=== PATIENT | female | born 1995 | race Caucasian/White ===

== ENCOUNTER 2020-02-02 12:14 | Outpatient (CLI) | payer MEDICAID, SELFPAY ==
--- NOTE | 2020-02-02 12:17 | US_ITS ---
WS: [id number] TRANSABDOMINAL FIRST TRIMESTER ULTRASOUND HISTORY: SUPERVISION NORMAL : 3 PARA: 1 COMPARISON: None available. FINDINGS: Cervical length is 2.9 cm; closed. Single live intrauterine . [place] rump length measuring 0.9 cm. Yolk sac measures 0.4 cm. Gestational sac measures 7w0d cm. cardiac tones 136 BPM. Estimated date of delivery 09/20/2020. Uterus measures 5.1 cm x 8.7 x cm 5.8 cm. Right ovary measures 2.4 cm x 2.1 cm x 1.0 cm. Left ovary measures 3.0 cm x 2.4 cm x 1.2 cm. US/US OB <= 14 weeks fetus [id number] IMPRESSION: Interuterine at 7 weeks gestation with a due date using this criteria September 20, 2020.
== END 2020-02-02 12:15 | disposition home or self-care (01) ==
PROVIDERS: Visit Provider Family Medicine
DX: Z34.91 Encounter for supervision of normal pregnancy, unspecified, first trimester (principal); Z3A.01 Less than 8 weeks gestation of pregnancy
CPT/HCPCS: 76801

== ENCOUNTER 2020-04-29 10:02 | Outpatient (CLI) | payer MEDICAID, SELFPAY ==
--- NOTE | 2020-04-29 10:12 | US_ITS ---
WS: [id number] OB ultrasound, 04/29/2020 Clinical Data: ANATOMY/NORMAL , SUPERVISION Comparison: OB ultrasound, 02/02/2020. Findings: There is a single intrauterine in the vertex presentation. The placenta is Anterior and gra de 0. There is a normal amount of amnionic fluid. The heart rate is 141 beats per minute. Measurements of growth and development: BPD: 4.5 cm HC: 17.1 cm AC: 14.3 cm FL: 3.1 cm The estimated weight is 307 or approximately 11 ounces The estimated gestational age is 19w5d w ith an GENEVIEVE of approximately 09/18/2020. The cervix measures 3.84 cm and is closed. The placenta is po sterior and grade 0. anatomy show a normal stomach, kidneys, bladder, extremities, upper lip, cord insertion, three- vessel cord, entire spine, four-chamber heart, LVOT, RVOT, lateral cerebral ventricles, cerebellum an d cisterna magna. US/US OB >= 14 weeks fetus [id number] Impression: 1. Single intrauterine in vertex presentation. 2. Estimated gestational age 19w5d with an GENEVIEVE of 09/18/2020. 3. heart rate 141 beats per minute.
== END 2020-04-29 10:03 | disposition home or self-care (01) ==
LOC: RAD 10:05
PROVIDERS: PCP Family Medicine; Visit Provider Family Medicine
DX: Z36.89 Encounter for other specified antenatal screening (principal); Z3A.19 19 weeks gestation of pregnancy
CPT/HCPCS: 76805

== ENCOUNTER 2020-08-10 07:53 | Outpatient (CLI) | payer MEDICAID, SELFPAY ==
--- NOTE | 2020-08-10 08:10 | US_ITS ---
WS: [id number] LIMITED OBSTETRICAL ULTRASOUND HISTORY: SMALL FOR GESTATIONAL AGE/SUPERVISION NORMAL COMPARISON: 04/29/2020, 02/02/2020 Presentation: Cephalic. Cervix: Closed and normal length. Placenta: Posterior, no previa or abruption. Grade: 1. HEART: FHR of 133 BPM. measurements: BPD = 8.6 cm = 34w5d HC = 31.1 cm = 34w6d AC = 30.4 cm = 34w3d FL = 6.5 cm = 33w3d JAELYN: 12.3 cm EFW: 2370 g; 55 %. AGA by ultrasound: 34w3d GENEVIEVE by ultrasound: 09/18/2020 Compared to the first trimester there has been appropriate interval growth. First trimester EDC of 09/20/2020. Growth parameters and percentiles are still within normal limits[place] US/[place] [id number] IMPRESSION: 1. Single intrauterine gestation of 34 weeks 3 days with an EDC of 09/18/2020. 2. By ultrasound normal growth pattern.
== END 2020-08-10 07:54 | disposition home or self-care (01) ==
PROVIDERS: PCP Family Medicine; Visit Provider Family Medicine
DX: Z36.4 Encounter for antenatal screening for fetal growth retardation (principal); Z3A.34 34 weeks gestation of pregnancy
CPT/HCPCS: 76816

== ENCOUNTER 2020-08-23 11:00 | Outpatient (CLI) | payer MEDICAID, SELFPAY ==
--- NOTE | 2020-08-23 11:00 | ANES.PREANE2 ---
Pre-Anesthetic Assessment Pre-Anesthetic Assessment: Preop Diagnosis: IUP Proposed Procedure: Repeat Familial anesthetic complications: None Social: Social History: No alcohol and No tobacco Exam: Pre-Anes Outpt Exam: alert, oriented x 3, clear to auscultation bilaterally and regular rate & rhythm Airway: Cervical ROM: WNL MP: 2 Dentition: Full Pulmonary: Pulmonary: Asthma GI: GI: GERD Anesthetic Plan: ASA status: 2 Anesthesia: Regional (specify below) (SAB) Risk of > 500 ml blood loss (7ml/kg in children): No Data Anesthesia Cardiac Studies: No Data to Display
== END 2020-08-23 11:01 ==
LOC: OPS 05-12 10:42
PROVIDERS: PCP Family Medicine; Visit Provider Family Medicine
DX: Z01.818 Encounter for other preprocedural examination (principal)

== ENCOUNTER 2020-09-14 10:45 | Inpatient (IN) | payer MEDICAID, SELFPAY ==
[2020-09-14] VITALS (30 sets, daily range): BP systolic 96–151; BP diastolic 56–88; PULSE 45–91; RESP 15–18; TEMP 36.3–36.7; O2SAT 97–100; BMI 28.0
[2020-09-14 12:00] LABS: Basophils % 0.4 %; Eosinophils % 0.3 %; Hematocrit 40.7 % (37.0-47.0); Hemoglobin 12.9 g/dL (11.5-15.3); Lymphocytes # 1.1 10^3/uL (0.8-4.8); Lymphocytes % 16.3 %; Mean Corpuscular HGB Conc 31.7 g/dL (30.0-36.0); Mean Corpuscular Hemoglobin 29.5 pg (28.0-34.0); Mean Corpuscular Volume 92.9 fL (81-99); Mean Platelet Volume 13.1 fL (7.4-10.4); Monocytes # 0.6 10^3/uL (0.2-0.9); Neutrophils # 5.17 10^3/uL (1.8-7.7); Neutrophils % 73.9 %; Nucleated Red Blood Cells % 0 %; Platelet Count 180 10^3/cmm (130-400); Red Blood Count 4.38 10^6/uL (4.1-5.3)
[2020-09-14] MEDS: lactated ringers 1,000 ML 500 ML IV (12:05)
[2020-09-14] MEDS: famotidine 20 mg/2 mL INJ IVP (13:13)
[2020-09-14] MEDS: metoclopramide 5 mg/mL SDV 2 mL 10 MG IVP (13:13)
[2020-09-14] MEDS: citric acid-sodium citrate 30 mL UDC PO (13:13)
--- NOTE | 2020-09-14 13:23 | PM.HP ---
Providers/Chief Complaint Admitting Physician: Francisco Martinez MD Primary Care Provider: Francisco Martinez MD Chief Complaint: section History of Present Illness Markus Valentino is a 24 year old at 39.3 weeks gestation by LMP consistent with 7-week ultrasound. Her is complicated by history of chlamydia, history of LTCS requesting repeat LTCS, history of THC use, asthma, mild anemia. The patient presents to labor delivery for a scheduled repeat low-transverse section. She feels well. She denies any fevers, chest pain, cough, constipation, diarrhea, leakage of fluid, vaginal bleeding, dysuria. Overall she feels well. Medications/Allergies Home Medications Medication Instructions Recorded Confirmed Last Taken Type iron 325 mg PO BID 09/14/20 09/14/20 Unknown History Allergies Allergy/AdvReac Type Severity Reaction Status Date / Time No Known Allergies Allergy Verified 09/14/20 11:56 PFSH Acute PFSH: Medical History (Updated 09/14/20 @ 13:27 by Francisco Martinez MD) Asthma Surgical History History of low transverse section Female Reproductive History: : 4 Vitals/I&O/Wt Last Vital Signs Temp 98.1 F 09/14/20 12:04 Pulse 70 09/14/20 13:03 BP 120/72 09/14/20 13:03 Weight last 48 hrs Weight 153 lb Physical Exam Narrative: EXAM NARRATIVE: General: Alert and oriented x3 Eyes: Pupils equal round and reactive to light and accommodation Mouth: Mucous membranes moist, pharynx non-erythematous Cardiac: Regular rate and rhythm without murmurs Lungs: Clear to auscultation bilaterally without wheezes, crackles or rhonchi Abdomen: Soft, non-tender, fundus consistent with gestational age Extremities: Trace edema in the bilateral lower extremities Data : 09/14/20 11:20 A&P Additional A&P Information The patient is doing well at this time. I discussed the routine section plan of care. All questions were answered. We will plan for a repeat low-transverse section. The patient does not wish to have a tubal ligation. We will get a urine drug screen due to her prior THC use. Attestations Medical Necessity Statement*: The patient will be here for greater than 2 midnights due to routine intrapartum and management of section. Coding Level of Care Code Acute Manager Mental Health for Emily Choi
--- NOTE | 2020-09-14 13:29 | P.ANESUD_ITS ---
Pre-Anesthetic Update Pre-Anesthetic Assessment: Date of Surgery/Procedure: 09/14/20 Preop Anne gnosis: IUP Proposed Procedure: Operation Date: 09/14/20 13:30 Proposed Procedures p Section(Not Applicable) - Francisco Martinez MD Any changes to Pre-Anesthetic Assessment?: No Last Intake: 0000 Last Intake: 00:00 Labs Last 48hrs: Laboratory Results - last 48 hr 09/14/20 09/14/20 11:20 11:20 WBC 7.0 RBC 4.38 Hgb 12.9 Hct 40.7 MCV 92.9 MCH 29.5 MCHC 31.7 RDW 15.0 Plt Count 180 MPV 13.1 H Neut % (Auto) 73.9 Lymph % (Auto) 16.3 [place] % (Auto) 9.0 Eos % (Auto) 0.3 Baso % (Auto) 0.4 Neut # (Auto) 5.17 Lymph # (Auto) 1.1 [place] # (Auto) 0.6 Eos # (Auto) 0.0 Baso # (Auto) 0.0 Nucleated RBC % (a uto) 0 Nucleated RBCs # 0.0 Blood Type O Positive Rho(D) Type Positive Vitals: Temperature 98.1 F 09/14/20 12:04 Pulse Rate 70 09/14/20 13:03 Pulse Rhythm 09/14/20 11:00 Respiratory Effort Non-Labored 09/14/20 11:00 Respiratory Depth Normal 09/14/20 11:00 Respiratory Patter n 09/14/20 11:00 Blood Pressure 120/72 09/14/20 13:03 Oxygen Delivery Me thod 09/14/20 11:00 Exam: Pre-Anes Outpt Exam: alert, oriented x 3, clear to auscultation bilaterally and regular rate & rhythm Cardiac Studies: No Data to Display
--- NOTE | 2020-09-14 15:07 | P.OP_ITS ---
Operative Report Date of procedure: September 14, 2020 Pre-op Diagnosis: IUP Pre-op Diagnosis: 1. Intrauterine at 39.3 weeks gestation 2. History of low transverse section requesting repeat low-transverse section 3. History of THC use 4. Asthma 5. Mild anemia Post-op Diagnosis: 1. Intrauterine status post repeat low transverse section at 39.3 weeks gestation 2. History of low transverse section requesting repeat low-transverse section 3. History of THC use 4. Asthma 5. Mild anemia 6. Delivery of healthy infant male weighing 6 pounds 9 ounces with Apgars of 8 and 9 Procedure Done: Repeat low-transverse section Specimens removed/disposition: Placenta discarded Surgeon: Francisco Martinez Anesthesia: Other (Spinal) Estimated blood loss (mL): 600 Complications: None Findings: 1. Delivery of healthy male weighing 6 pounds 9 ounces with Apgars of 8 and 9 Condition: stable Disposition: floor Brief History: Markus Valentino is a 24 year old G2 now P2 status post repeat low transverse section at 39.3 weeks gestation by LMP consistent with 7-week ultrasound. Her was complicated by history of chlamydia, history of LTCS requesting repeat LTCS, history of THC use, asthma, mild anemia. The patient presented for a scheduled repeat low-transverse section. She did not have any complications or concerns prior to delivery. Procedure: After informed consent was obtained, the patient was taken to the operating room and the patient was prepped and draped in a normal sterile fashion in the dorsal supine position. A spinal epidural was placed and adequate anesthesia was confirmed. At 1353 on 09/14/2020, a Pfannenstiel skin incision was made and carried through to the underlying layer of fascia using a scalpel. The fascial incision was then extended laterally using curved Mayos. The fascia was then grasped with Indira clamps and the underlying rectus muscles were dissected off taking care to avoid injury to the underlying tissues. The peritoneum was entered bluntly with one digit. It was then bluntly. The bladder blade was placed and the vesicouterine peritoneum was well below the lower uterine segment of the uterus. The uterine incision was made in the lower uterine segment in a transverse fashion with the scalpel at 1357. The amniotic membrane was entered bluntly and a large amount of clear fluid was noted. The infant's head delivered atraumatically without difficulty at 1358. There was no nuchal cord. The mouth and nose were suctioned. The rest of the delivered without difficulty. The infant was crying immediately upon delivery. The cord was clamped and cut and the infant was handed to the awaiting pediatric nurses. The placenta was then manually expressed. The uterus was then exteriorized from the abdomen and a wet lap was used to clear the uterus of clots and debris. The bladder blade was reinserted and the uterine incision was closed using 0 chromic in a running locking fashion. A second layer of the same suture was used in the same manner. Excellent hemostasis was obtained. Next the posterior cul-de-sac was inspected and was cleared of any blood. The uterus was then placed back into the abdomen. The gutters were cleared of any further clots and debris and the uterine incision was again inspected and hemos tasis was noted. The subfascial tissue was inspected for hemostasis and the peritoneum was re-approximated using 2-0 plain in a running fashion. The fascia was then re-approximated using 0 Vicryl in a running fashion. The subcutaneous tissue was inspected for hemostasis. Clarence's fascia was then re-approximated using 3-0 plain in a running fashion. Good hemostasis was noted. The subcutaneous tissue was then re-approximated using a subcuticular stitch. The patient tolerated the procedure well and was recovered in stable condition. Estimated blood loss was 600 mL. Urine in the Alejandro catheter was clear. The patient was taken to recovery in good condition.
[2020-09-14] MEDS: dextrose 5%-lactated ringers 1,000 ML 125 ML IV ×2 (15:57→21:14)
[2020-09-14 16:00] LABS: Amphetamines Screen Urine Negative (Negative); Barbiturates Screen Urine Negative (Negative); Benzodiazepines Screen Urine Negative (Negative); Cocaine Screen Urine Negative (Negative); Opiate Screen Urine Negative (Negative); PCP Screen Urine Negative (Negative); THC Screen Urine Negative (Negative)
--- NOTE | 2020-09-14 16:19 | PC.NURSE ---
pt to room 10 from OR via bed. oriented to room/call light. instructed not to get out of bed without assistance, nothing to eat or drink unless provided by nursing. deep breathing/coughing discussed.
[2020-09-14] MEDS: ondansetron 2 mg/ML SDV 2 mL 4 MG IVP (17:02)
[2020-09-14] MEDS: promethazine 25 mg/mL SDV 1 mL IM (17:42)
[2020-09-14] MEDS: diphenhydrAMINE 50 mg/mL SDV 1mL 25 MG IVP (17:43)
--- NOTE | 2020-09-14 17:57 | PC.NURSE ---
pt still c/o severe nausea. now states she is getting a headache. meds given as ordered. cool washcloth to forehead. murphy care performed/chux changed
--- NOTE | 2020-09-14 18:34 | PC.NURSE ---
pt states nausea and REYNOLDS much better
[2020-09-14] MEDS: ketorolac 30 mg/mL INJ IVP (21:15)
[2020-09-15 01:30] VITALS: BP 119/81; PULSE 66
[2020-09-15] MEDS: ketorolac 30 mg/mL INJ IVP (03:21)
[2020-09-15 04:09] LABS: Hematocrit 36.6 % (37.0-47.0); Hemoglobin 11.3 g/dL (11.5-15.3); Mean Corpuscular HGB Conc 30.9 g/dL (30.0-36.0); Mean Corpuscular Hemoglobin 29.4 pg (28.0-34.0); Mean Corpuscular Volume 95.3 fL (81-99); Mean Platelet Volume 11.6 fL (7.4-10.4); Platelet Count 133 10^3/cmm (130-400); Red Blood Count 3.84 10^6/uL (4.1-5.3); Red Cell Distribution Width 14.8 % (12.1-15.1); White Blood Count 9.6 10^3/uL (4.0-10.0)
--- NOTE | 2020-09-15 08:41 | PM.PN ---
Subjective Subjective: Interval history: The patient is doing well at this time. She had some nausea yesterday that improved with IM Phenergan. Her pain is currently well controlled. The patient is ambulating, voiding, passing gas and tolerating food by mouth. She states that her bleeding is improving. She has no concerns at this time. Vitals/I&O/Wt Last Vital Signs Temp 97.9 F 09/14/20 18:30 Pulse 66 09/15/20 01:30 Resp 16 09/14/20 23:30 BP 119/81 09/15/20 01:30 Pulse Ox 97 09/14/20 23:30 09/14/20 09/15/20 09/15/20 22:59 06:59 14:59 Intake Total 2500.00 / 3550.00 Output Total 1440 / 1440 1650 / 3090 325 / 325 Balance 1060.00 / 2110.00 -1650 / 460.00 -325 / -325 Weight last 48 hrs Weight 153 lb Physical Exam Narrative: EXAM NARRATIVE: General: Alert and oriented x3 Mouth: Mucous membranes moist, pharynx non-erythematous Cardiac: Regular rate and rhythm without murmurs Lungs: Clear to auscultation bilaterally without wheezes, crackles or rhonchi Abdomen: Soft, mild tenderness over the uterus. Uterus is firm and 3 cm below the umbilicus. Extremities: Trace edema in the bilateral lower extremities Urinary Catheter Management^: Alejandro: Cath Placed During This Visit: yes, but has since been removed by the nurse Reason for Continuing Indwelling Catheter: Decision to DC Catheter Urinary Catheter Date of Insertion: 09/14/20 Urinary Catheter Time of Insertion: 13:40 Date Urinary Catheter Removed: 09/15/20 Time Urinary Catheter Discontinued: 04:30 Data : 09/15/20 03:15 A&P Additional A&P Information The patient is doing well at this time. Her hemoglobin did not drop significantly. Her bleeding is decreasing well. Her pain is well controlled. We will continue with routine care and plan for discharge home tomorrow if she is continuing to do well. All questions were answered. Attestations Medical Necessity Statement*: Patient will be here for greater than 2 midnights due to routine intrapartum and management of section. Coding Level of Care Code Acute Senior Sales Director for Emily Choi
[2020-09-15] MEDS: prenatal vitamin Capsule 1 CAP PO (08:50)
[2020-09-15] MEDS: docusate sodium 100 mg Capsule PO ×2 (08:50→17:47)
--- NOTE | 2020-09-15 09:57 | PC.NURSE ---
Patient reporting feeling chest pain in her right upper chest, when she takes a deep breath. She reports telling Dr. Martinez about it this morning when he was in the patient's room.
[2020-09-15 09:58] VITALS: BP 108/72; PULSE 97; RESP 16; TEMP 37.3; O2SAT 98
[2020-09-15] MEDS: simethicone 80 mg Chew PO (10:04)
[2020-09-15] MEDS: acetaminophen 325 mg Tablet 650 MG PO (10:04)
[2020-09-15] MEDS: ibuprofen 800 mg tablet PO ×2 (14:50→21:39)
[2020-09-15 16:33] VITALS: BP 109/73; PULSE 73; RESP 17; TEMP 36.6
[2020-09-15 19:50] VITALS: BP 117/75; PULSE 75; RESP 16; TEMP 36.7
[2020-09-16 04:16] VITALS: BP 123/80; PULSE 69; RESP 16; TEMP 36.8
--- NOTE | 2020-09-16 06:26 | PM.DCS ---
Discharge Providers Date of Admission: 09/14/20 10:45 Date of Discharge: September 16, 2020 Attending Provider at Admission: Francisco Martinez MD Attending Provider at Discharge: Francisco Martinez MD Primary Care Provider: Francisco Martinez MD Diagnoses at Discharge Other Information Additional DC diagnoses/information: 1. Intrauterine status post repeat low transverse section at 39.3 weeks gestation 2. History of low transverse section requesting repeat low-transverse section 3. History of THC use 4. Asthma 5. Mild anemia 6. Delivery of healthy infant male weighing 6 pounds 9 ounces with Apgars of 8 and 9 Reason for Visit Reason for Visit: section Hospital Course Hospital Course The patient presented for a scheduled repeat low-transverse section. The surgery was uncomplicated and the patient delivered a healthy infant male. She has had no complications postoperatively and is ambulating, voiding, passing gas and tolerating food by mouth. The patient's pain is currently well controlled. Her bleeding is decreasing well. Routine post instructions were discussed. All questions were answered. The patient will follow up with me at 2 weeks and 6 weeks . Sooner if needed. Physical Exam Narrative: EXAM NARRATIVE: General: Alert and oriented x3 Mouth: Mucous membranes moist, pharynx non-erythematous Cardiac: Regular rate and rhythm without murmurs Lungs: Clear to auscultation bilaterally without wheezes, crackles or rhonchi Abdomen: Soft, mild tenderness over the uterus. Uterus is firm and 3 cm below the umbilicus. Extremities: Trace edema in the bilateral lower extremities Urinary Catheter Management^: Alejandro: Cath Placed During This Visit: yes, but has since been removed by the nurse Reason for Continuing Indwelling Catheter: Decision to DC Catheter Urinary Catheter Date of Insertion: 09/14/20 Urinary Catheter Time of Insertion: 13:40 Date Urinary Catheter Removed: 09/15/20 Time Urinary Catheter Discontinued: 04:30 Discharge Data Vitals: Last Vital Signs Temp 97.8 F 09/15/20 16:33 Pulse 73 09/15/20 16:33 Resp 17 09/15/20 16:33 BP 109/73 09/15/20 16:33 Pulse Ox 98 09/15/20 09:58 Discharge Plan Discharge Patient Disposition: Home Condition: Good Prescriptions: New oxycodone-acetaminophen 5-325 mg Tablet 1 tab PO Q6H PRN (Reason: Moderate To Severe Pain) Qty: 15 RF: 0 -U 106.5-1 mg Capsule 1 cap PO BREAKFAST Qty: 30 RF: 0 ibuprofen 800 mg Tablet 800 mg PO TID Qty: 60 RF: 0 Continued iron 325 mg (65 mg iron) Tablet 325 mg PO BID Qty: 30 RF: 0 Discharge Orders: Discharge Order (Routine); Ordered 09/16/20 Ordered By: Francisco Martinez Referrals: Francisco Martinez MD [Primary Care Provider] - (Follow-up at 2 weeks and 6 weeks .) Discharge Diet: Regular Discharge Activity: Limit activity as instructed Activity Restrictions/Additional Instructions: If you have any concern for infection in your incision site, please seek immediate medical attention. Do not lift anything heavier than your infant in the car seat for the first 3 weeks, then gradually increase. Showers are okay, I recommend against bathing for the first 6 weeks. Nothing per vagina for 6 weeks. No driving for 2 weeks. Discharge Attestations Time Spent in Discharge Care*: greater than 30 min Quality Metrics Clinical Quality Measures During this hospital stay, did patient experience: None Coding Level of Care Code Acute Pharmacy Stock Clerk for Emily Choi
[2020-09-16 08:45] VITALS: BP 123/81; PULSE 110; RESP 16; TEMP 36.4; O2SAT 98
== END 2020-09-16 08:45 | disposition home or self-care (01) | DRG 787 ==
PROVIDERS: Admitting Provider Family Medicine; PCP Family Medicine; Visit Provider Family Medicine
PROC: 10D00Z1 Extraction of Products of Conception, Low, Open Approach (ICD-10-PCS; CPT 59514; principal; 2020-09-14 13:30)
DX: O34.211 Maternal care for low transverse scar from previous cesarean delivery (principal); O99.324 Drug use complicating childbirth; Z3A.39 39 weeks gestation of pregnancy; Z37.0 Single live birth; O99.02 Anemia complicating childbirth; D64.9 Anemia, unspecified; F12.90 Cannabis use, unspecified, uncomplicated; O75.89 Other specified complications of labor and delivery; J45.909 Unspecified asthma, uncomplicated
CPT/HCPCS: 12345; 36415; 51702; 59409; 80306; 85025; 85027; 86900; 96372; J0690; J1200; J1885; J2274; J2405; J2550; J2765; J3010; J3490; J7030

== ENCOUNTER → 2021-02-27 13:05 | Outpatient (BNVA) | payer MEDICAID, SELFPAY | PROVIDERS: PCP Family Medicine; Visit Provider Nurse Practitioner Family | DX: Z20.822 Contact with and (suspected) exposure to COVID-19 (principal) | CPT/HCPCS: 87635 ==

== ENCOUNTER 2025-04-05 05:14 | Inpatient (IN) | payer MEDICAID, SELFPAY ==
--- OUTSIDE RECORDS SUMMARY | 2012-04-24 19:00 | XMS_ITS | Continuity of Care Document ---
Author Organization [facility] Address [address] [place] [id number] Phone Care Team Providers Care Junior Sales Representative Name Role Phone Unavailable Unavailable Unavailable Advance Directives Directive Yes / No Effective Date File Name No Information Encounters Encounter Description Practice Location Reason(s) For Visit Diagnoses Date Provider Providers Copied on Encounter [facility], [address] [facility] [address] [place] [address], [id number], tel:[phone] [facility] No Information Apr-0 7201 2 No Information Referring Provider: CHUY Faulkner, [facility] [place], [address]. tel:[phone] Family History Family Member Type Diagnosis Age At Onset No Information Payers Payer name Insurance type Covered democrat ID Authorteodoroa nidia(s) [employer] [id number] Social History Type Description Quantity Date Captured Comments Sex Female Smoking Status No Information Chief Complaint And Reason For Visit No Information History Of Present Illness Encounter Date Complaint History Of Prese nt Illness No Information Instructions Date Instruction Additional Infor mation No Information Assessments Type Assessment Date No Information
--- NOTE | 2025-03-30 09:14 | ANES.PREANE2 ---
Pre-Anesthetic Assessment Height/Weight: Height 5 ft 2 in Operation Date: 04/05/25 07:20 Proposed Procedures p Section Repeat 85578(Not Applicable) - Khang Jackson MD Anesthetic Plan ASA status: 3 Anesthesia: Regional (specify below) Other: G3, P2 here for preop evaluation for scheduled Patient states that she has had 2 prior C-sections. First one she had an epidural and did well. During the Second c section she had a spinal and ended up having a PDPH that lasted 2 weeks Patient denies any issues during besides anemia. She has been taking iron for this Denies any pulmonary or cardiac issues Will obtain labs morning of procedure Plan for routine with spinal Medications/Allergies Home Medications ?Medication ?Instructions ?Recorded ?Confirmed ?Last Taken ?Type ferrous sulfate 325 mg (65 mg 325 mg PO BID #30 tabs 09/16/20 02/27/21 Unknown Rx iron) tablet (iron) ibuprofen 800 mg tablet 800 mg PO TID #60 tabs 09/16/20 02/27/21 Unknown Rx multivitamin no.51-ferrous 1 cap PO BREAKFAST #30 caps 09/16/20 02/27/21 Unknown Rx fumarate 106.5 mg-folic acid 1 mg capsule (-U) oxycodone-acetaminophen 5 mg-325 1 tab PO Q6H PRN Moderate To 09/16/20 02/27/21 Unknown Rx mg tablet Severe Pain #15 tabs Allergies Allergy/AdvReac Type Severity Reaction Status Date / Time No Known Allergies Allergy Verified 09/14/20 11:56 [facility] Anesthesia Medical History (Updated 09/14/20 @ 13:27 by Francisco Martinez MD) Asthma Surgical History History of low transverse section
[2025-04-05] VITALS (141 sets, daily range): BP systolic 80–149; BP diastolic 32–90; PULSE 50–99; RESP 16–17; TEMP 36.6–36.8; O2SAT 90–100; BMI 29.2
[2025-04-05 05:55] LABS: Hematocrit 31.4 % (36-47); Hemoglobin 9.80 g/dL (11.27-16.99); Mean Corpuscular HGB Conc 31.2 g/dL (30-55); Mean Corpuscular Hemoglobin 26.1 pg (27-33); Mean Corpuscular Volume 83.7 fl (85-98); Nucleated Red Blood Cells % 0 %; Platelet Count 184 10^3/cmm (157-399); Red Blood Count 3.75 10^6/uL (3.85-5.65); White Blood Count 6.60 10^3/uL (3.29-11.43)
[2025-04-05] MEDS: metoclopramide 5 mg/mL SDV 2 mL 10 MG IVP (06:50)
[2025-04-05] MEDS: citric acid-sodium citrate 30 mL UDC PO (06:50)
--- NOTE | 2025-04-05 06:58 | P.ANESUD_ITS ---
Pre-Anesthetic Update Pre-Anesthetic Assessment: Date of Surgery/Procedure: 04/05/25 Preop Anne gnosis: repeat C/S Proposed Procedure: Operation Date: 04/05/25 07:00 Proposed Procedures p Section Repeat 12405(Not Applicable) - Khang Jackson MD Any changes to Pre-Anesthetic Assessment?: No Last Intake: >8hrs Labs Last 48hrs: Short CBC 04/05/25 Range/Units 05:36 WBC 6.60 (3.29-11.43) 10^ 3/uL Hgb 9.80 L (11.27-16.99) g/ dL Hct 31.4 L (36-47) % MCV 83.7 L (85-98) fl Plt Count 184 (157-399) 10^3/c mm Neut % (Auto) 65.1 % Neut # (Auto) 4.30 (1.8-7.7) 10^3/u L Vitals: Pulse Rate 81 04/05/25 06:45 Blood Pressure 115/58 04/05/25 06:45 Oxygen Delivery Me thod Room Air 04/05/25 05:57 Exam: Pre-Anes Outpt Exam: alert, oriented x 3 and clear to auscultation bilaterally
[2025-04-05] MEDS: BUPivacaine 0.5% INJ 30 mL INJECTION (07:59)
--- NOTE | 2025-04-05 08:29 | P.HP_ITS ---
Providers/Chief Complaint 2 Admitting Physician: Khang Jackson MD Primary Care Provider: Khang Jackson MD Chief Complaint: HPI EXTERMINATOR HELPER History of Present Illness Markus Valentino is a 29 year old G5 para 2-0-2-2 female At 39 weeks estimated gestational age presenting to the hospital for a scheduled repeat section. The patient has had an unremarkable otherwise. Her dates are based on a first trimester ultrasound.Her blood type is O+. Her antibody screen is negative. She passed her glucose screen. She is GBS negative. She is rubella immune. The remainder of her infectious disease profile is within normal limits. Present Details : 5 Para: 2 Labs Rubella: Immune RPR: Negative GBS: Negative Review of Systems 2 General: Reports: 10 or more systems reviewed and unremarkable except in HPI and below Const: Reports: fatigue; Denies: fever(s) Eyes: Denies: change in vision Card: Denies: chest pain Musc: Reports: back pain Armando/Lymph: Denies: easy bruising Medications/Allergies Home Medications ?Medication ?Instructions ?Recorded ?Confirmed ?Last Taken ?Type ferrous sulfate 325 mg (65 mg 325 mg PO BID #30 tabs 0 09/16/20 04/05/25 04/04/25 Rx iron) tablet (iron) multivitamin no.51-ferrous 1 cap PO BREAKFAST #30 caps 09/16/20 04/05/25 04/04/25 Rx fumarate 106.5 mg-folic acid 1 mg capsule (-U) albuterol sulfate 90 mcg/actuation 1 - 2 inh inhalatio n PRN PRN 04/05/25 04/05/25 Unknown History aerosol inhaler Shortness Of Breath Or Wheez ing Allergies Allergy/AdvReac Type Severity Reaction Status Date / Time No Known Allergies Allergy Verified 04/05/25 05:43 PFSH EXTERMINATOR HELPER 2 PFSH: Medical History Asthma Surgical History (Updated 04/05/25 @ 08:34 by Khang Jackson MD) History of low transverse section Vitals/I&O/Wt Last Vital Signs Pulse 82 04/05/25 07:13 BP 109/67 04/05/25 07:13 O2 Del Method Room Air 04/05/25 05:57 Weight last 48 hrs Weight 160 lb Weight 160 lb Physical Exam 2 Const: COMMON NORMALS: patient oriented x3 and alert HENMT: COMMON NORMALS: moist oral mucous membranes HEAD & SCALP: normal to inspection Chest: COMMONS NORMALS: normal inspection of the chest Resp: COMMON NORMALS: clear to auscultation bilaterally AUSCULTATION: clear to auscultation bilaterally Cardio: COMMON NORMALS: regular rate and regular rhythm RATE: regular rate RHYTHM: regular rhythm GI: INSPECTION: Yes normal to inspection and Yes other (Gravid) Extremity: COMMON NORMALS: normal to inspection GENERAL: Yes edema (Trace) Neuro: COMMON NORMALS: patient oriented x3, moves all extremities and no sensory deficits noted SENSORIUM/ORIENTATION: Yes alert Psych: COMMON NORMALS: mental status grossly normal Skin: COMMON NORMALS: no rashes or lesions noted GENERAL SKIN EXAM: no rashes or lesions noted Urinary Catheter Management: Alejandro Latex Free: Cath Placed During This Visit: yes Urinary Catheter Date of Insertion: 04/05/25 Urinary Catheter Time of Insertion: 07:40 Data 04/05/25 05:36 Results Labs OB ([facility]): 2 Blood Type O Positive Today Antibody Screen Negative Today Hct, (36-47) 31.4 % L Today Hgb, (11.27-16.99) 9.80 g/dL L Today Rho(D) Type Rh positive Today Plt Count, (157-399) 184 10^3/cmm Today A&P Assessment and plan 1. History of low transverse section: We will proceed with a lower transverse section.The risks and alternatives of been discussed with the patient and her multiple times during her . They understand these risks and wish to proceed. 2. 39 weeks gestation of : PDMP PDMP Reviewed: Not Reviewed Attestations 2 Medical Necessity Statement*: Routine and post care Coding Level of Care Code Acute Code for Chg Fwd Diagnoses History of low transverse section Z98.891 39 weeks gestation of Z3A.39
--- NOTE | 2025-04-05 08:35 | PM.OP ---
Operative Report Date of procedure: April 05, 2025 Pre-op diagnosis: 29-year-old 5 para 2-0-2-2 at 39 weeks estimated gestational age presenting for a repeat section Post-op diagnosis: Status post low-transverse section right status post section Procedure done: Lower transverse section Specimens removed/disposition: 1. Male with a weight of 8 pounds 6 ounces and Apgars of 9 and 9 2. Placenta with a three-vessel cord over an intact Surgeon: Khang Jackson MD Estimated blood loss (mL): 500 Complications: None Procedure: The patient was brought back to the operating room where she was prepped and draped in usual sterile fashion. Anesthesia was found to be adequate. A lower transverse skin incision was then made with a #10 blade. I then dissected down to the underlying subcutaneous tissue until arriving at the prerectal fascia. The fascia was then nicked with the scalpel bilaterally. The fascial incisions were then carried laterally with Dominguez scissors. Attention was then turned to the superior aspect of the incision which was grasped with kochers and tented up away from the underlying rectus abdominis muscles. The muscles were then dissected away from the fascia manually, and later with Dominguez scissors. Attention was then turned to the inferior aspect of the incision, and the fascia was dissected away from the underlying muscle in similar fashion. The rectus abdominis muscles were then spread manually. The peritoneum was entered manually. Excellent visualization of the uterus was noted. A lower transverse uterine incision was then made with a #10 blade. Upon arriving at the intrauterine cavity, the uterine incision was then extended manually. The infant was noted to be in vertex position. The baby was delivered without difficulty. After delivery of the head, the mouth and nose were suctioned at the site of the incision. There was no meconium. There was no nuchal cord. The remainder of the body was then delivered and placed on the abdomen. The cord was cut and clamped. The baby was then handed to the waiting nurse. The placenta was removed intact. The uterus was externalized. The intrauterine cavity was cleansed of any remaining debris. The uterine incision was reapproximated in 2 layers. The first layer was performed with 0 Vicryl in a running locked stitch. The second layer was an imbricating stitch also using 0 Vicryl. The uterus was replaced into the abdomen. The peritoneum was then irrigated with warm saline. I reexamined the uterine incision and found it to be hemostatic. The rectus abdominis muscles were then reapproximated using 0 Vicryl in a running stitch. The fascia was then reapproximated using 0 Vicryl in running stitch.The subcutaneous tissue was then reapproximated using 0 Vicryl in a running stitch. The skin was reapproximated using shellie. A sterile dressing was placed. All counts were correct x2. Both the mother and baby were in stable condition.
[2025-04-05] MEDS: ondansetron 2 mg/ML SDV 2 mL 4 MG IVP (11:05)
[2025-04-05] MEDS: HYDROcodone-acetaminophen 5-325 mg Tablet PO (16:47)
[2025-04-05] MEDS: ferrous sulfate EC 325 mg Tablet PO (20:35)
[2025-04-05 21:01] LABS: Hematocrit 30.6 % (36-47); Hemoglobin 9.70 g/dL (11.27-16.99); Mean Corpuscular HGB Conc 31.7 g/dL (30-55); Mean Corpuscular Hemoglobin 26.5 pg (27-33); Mean Corpuscular Volume 83.6 fl (85-98); Platelet Count 160 10^3/cmm (157-399); Red Blood Count 3.66 10^6/uL (3.85-5.65); White Blood Count 10.78 10^3/uL (3.29-11.43)
[2025-04-06 04:41] VITALS: BP 113/55; PULSE 67; RESP 16; TEMP 36.7; O2SAT 99
--- NOTE | 2025-04-06 07:53 | P.DS_ITS ---
Discharge Providers HAND SIZER Date of Admission: 04/05/25 05:14 Date of Discharge: 04/06/25 Attending Provider at Admission: Khang Jackson MD Attending Provider at Discharge: Khang Jackson MD Primary Care Provider: Khang Jackson MD Diagnoses at Discharge Discharge Diagnosis 1. History of low transverse section: 2. 39 weeks gestation of : Reason for Visit Reason for Visit: Hospital Course Hospital Course The patient presented to the hospital yesterday morning for a scheduled repeat section. The was unremarkable. Her course was also unremarkable. Her urine output was excellent. Her vitals were within normal limits. She has passed flatus. She tolerated a regular diet. Her bleeding has been within normal limits. She has breast-fed well. There have been no concerns. Information Peripartum Data: Infant Delivery Method: Physical Exam Narrative: She is in no acute distress Lungs are clear auscultation bilaterally Her heart has a regular rate and rhythm Her fundus is below the umbilicus and firm Her dressing is clean, dry and intact Her extremities have trace edema Urinary Catheter Management: Alejandro Latex Free: Cath Placed During This Visit: yes Urinary Catheter Date of Insertion: 04/05/25 Urinary Catheter Time of Insertion: 07:40 Discharge Data Studies Completed and Pending Pending at discharge Category Date Time Status High Risk PP Hemorrhage Stat Lab 04/05/25 05:36 Received Laboratory Results WBC 10.78 10^3/uL (3.29-11.43) 04/05/25 20:38 RBC 3.66 10^6/uL (3.85-5.65) L 04/05/25 20:38 Hgb 9.70 g/dL (11.27-16.99) L 04/05/25 20:38 Hct 30.6 % (36-47) L 04/05/25 20:38 MCV 83.6 fl (85-98) L 04/05/25 20:38 MCH 26.5 pg (27-33) L 04/05/25 20:38 MCHC 31.7 g/dL (30-55) 04/05/25 20:38 RDW 18.1 % (12.1-15.1) H 04/05/25 20:38 Plt Count 160 10^3/cmm (157-399) 04/05/25 20:38 MPV 11.3 fL (7.4-10.4) H 04/05/25 20:38 Neut % (Auto) 65.1 % 04/05/25 05:36 Lymph % (Auto) 18.2 % 04/05/25 05:36 Lares % (Auto) 14.5 % 04/05/25 05:36 Eos % (Auto) 1.4 % 04/05/25 05:36 Baso % (Auto) 0.3 % 04/05/25 05:36 Neut # (Auto) 4.30 10^3/uL (1.8-7.7) 04/05/25 05:36 Lymph # (Auto) 1.2 10^3/uL (0.8-4.8) 04/05/25 05:36 Lares # (Auto) 1.0 10^3/uL (0.2-0.9) H 04/05/25 05:36 Eos # (Auto) 0.1 10^3/uL (0.0-0.8) 04/05/25 05:36 Baso # (Auto) 0.0 10^3/uL (0.0-0.1) 04/05/25 05:36 Nucleated RBC % (auto) 0 % 04/05/25 05:36 Nucleated RBCs # 0.0 /100WBC 04/05/25 05:36 Blood Type O Positive 04/05/25 05:36 Rho(D) Type Rh positive 04/05/25 05:36 Antibody Screen Negative 04/05/25 05:36 Vitals Last Vital Signs Temp 98.0 F 04/06/25 04:41 Pulse 67 04/06/25 04:41 Resp 16 04/06/25 04:41 BP 113/55 04/06/25 04:41 Pulse Ox 99 04/06/25 04:41 O2 Del Method Room Air 04/06/25 04:41 Results Labs OB ([facility]): Blood Type O Positive 04/05/25 Antibody Screen Negative 04/05/25 Hct, (36-47) 30.6 % L 04/05/25 Hgb, (11.27-16.99) 9.70 g/dL L 04/05/25 Rho(D) Type Rh positive 04/05/25 Plt Count, (157-399) 160 10^3/cmm 04/05/25 Discharge Plan Discharge Patient Disposition: Home Condition: Stable Prescriptions: New ibuprofen 800 mg Tablet 800 mg PO TID Qty: 45 0RF hydrocodone-acetaminophen 5-325 mg Tablet 1 tab PO Q6H PRN (Reason: Moderate To Severe Pain) Qty: 28 0RF docusate sodium 100 mg Capsule 100 mg PO BID Qty: 14 0RF Continued -U 106.5-1 mg Capsule 1 cap PO BREAKFAST Qty: 30 0RF ferrous sulfate [iron] 325 mg (65 mg iron) Tablet 325 mg PO BID Qty: 30 0RF albuterol sulfate 90 mcg/actuation HFA aerosol inhaler 1 - 2 inh INHALATION PRN PRN (Reason: Shortness Of Breath Or Wheezing) Discharge Order = DC NOW: Discharge Order (Routine); Ordered 04/06/25 Ordered By: Khang Jackson Referrals: Khang Jackson MD [Primary Care Provider, [facility]] - 7-10 days Discharge Diet: Usual diet Discharge Activity: Limit activity as instructed Patient Instructions: Depression (DC), Opioid Safety (DC), Preecl ampsia and Eclampsia After Delivery (GEN), Hemorrhage (DC), OB C- Section [facility], OB Discharge Report, OB Food/Drug Interaction Guide, OB Care at Home, Opioid Safety, Patient Portal & Ghulam Instructions, Abnormal Bleeding Discharge Attestations HAND SIZER Time Spent in Discharge Care*: less than 30 min Coding Level of Care Code Acute Code for Chg Fwd Diagnoses History of low transverse section Z98.891 39 weeks gestation of Z3A.39
[2025-04-06] MEDS: PRENATAL VIT NO.130/IRON/FOLIC 1 EACH TABLET PO (09:09)
[2025-04-06] MEDS: ferrous sulfate EC 325 mg Tablet PO (09:09)
[2025-04-06] MEDS: HYDROcodone-acetaminophen 5-325 mg Tablet PO (09:12)
[2025-04-06 11:07] VITALS: BP 106/55; PULSE 103
[2025-04-06 14:20] VITALS: BP 114/74; PULSE 75; O2SAT 98
[2025-04-07 10:31] LABS: High Risk PP Hemorrhage BBK Notified
== END 2025-04-06 14:15 | disposition home or self-care (01) | DRG 807 ==
PROVIDERS: Admitting Provider Family Medicine; PCP Family Medicine; Visit Provider Family Medicine
PROC: 10E0XZZ Delivery of Products of Conception, External Approach (ICD-10-PCS; CPT 59514; principal; 2025-04-05 07:00)
DX: O34.211 Maternal care for low transverse scar from previous cesarean delivery (principal); Z37.0 Single live birth; N85.8 Other specified noninflammatory disorders of uterus; Z3A.39 39 weeks gestation of pregnancy; O99.52 Diseases of the respiratory system complicating childbirth; J45.909 Unspecified asthma, uncomplicated
CPT/HCPCS: 51702; 59409; 85025; 85027; 86850; 86900; J1885; J2274; J2371; J2405; J2765; J3010; J3490; J7030; J7121; J9999